=== PATIENT | female | born 1990 | race Caucasian/White ===

== ENCOUNTER 2016-09-13 11:20 | Emergency (ER) | payer SELFPAY ==
[~2016-09-13] VITALS: Ht 157.5 cm; Wt 73.4 kg
[~2016-09-13 11:20] MED LIST: ATARAX,VISTARIL50 MG PO; BENADRYL50 MG PO; IBUPROFEN800 MG PO; PREDNISONE20 MG PO; PRENATAL TABLE1 EAC3 PO
[2016-09-13 15:38] LABS: HEMATOCRIT 44.6 % (36.0-46.0); MCH 29.4 PG (29.0-34.0); MCHC 34.3 G/DL (30.0-36.0); MCV 85.6 FL (83-99); MEAN PLAT.VOLUME 8.8 uM^3 (9.5-12.4); PLATELET COUNT 258 K/uL (156-360); RBC DIS.WIDTH-CV 12.4 % (11.8-14.6); RED BLOOD COUNT 5.21 M/uL (3.80-5.20); WHITE BLOOD COUNT 9.2 K/uL (4.1-10.2)
[2016-09-13 15:45] LABS: D-DIMER ELISA 0.46 mg/L FEU (< 0.57)
[2016-09-13 15:47] LABS: CHLORIDE 107 mEq/L (99-109); POTASSIUM 3.9 mEq/L (3.7-5.4); SODIUM 142 mEq/L (136-147)
[2016-09-13 15:49] LABS: GLUCOSE 86 mg/dL (70-99)
[2016-09-13 15:50] LABS: ANION GAP 10 MEQ/L (2-14)
[2016-09-13 15:53] LABS: GFR ESTIMATE (CALCULATED) > 59 mL/min/
[2016-09-13 15:54] LABS: UREA NITROGEN (BUN) 13 mg/dL (9-23)
[2016-09-13 16:02] LABS: QUANTITATIVE HCG < 4.0 MIU/ML
[2016-09-13 16:20] VITALS: BP 129/88
== END 2016-09-13 16:21 | disposition home or self-care (01) ==
LOC: EME 11:20
PROVIDERS: Nurse Practitioner Family
DX: T50.995A Adverse effect of other drugs, medicaments and biological substances, initial encounter (principal); M79.661 Pain in right lower leg; M79.662 Pain in left lower leg; R06.00 Dyspnea, unspecified; R42 Dizziness and giddiness; H53.8 Other visual disturbances
CPT/HCPCS: 80048; 84702; 85027; 85379; 93970; 99281; 99283

== ENCOUNTER 2016-10-29 08:21 | Emergency (ER) | payer OTHER ==
[~2016-10-29] VITALS: Ht 157.5 cm; Wt 71.0 kg
[2016-10-29 11:10] LABS: CHLORIDE 103 mEq/L (99-109); POTASSIUM 4.1 mEq/L (3.7-5.4); SODIUM 138 mEq/L (136-147)
[2016-10-29 11:12] LABS: GLUCOSE 85 mg/dL (70-99)
[2016-10-29 11:13] LABS: ANION GAP 12 MEQ/L (2-14)
[2016-10-29 11:16] LABS: GFR ESTIMATE (CALCULATED) > 59 mL/min/
[2016-10-29 11:17] LABS: UREA NITROGEN (BUN) 12 mg/dL (9-23)
[2016-10-29] MEDS ORDERED: XARELTO15 MG PO (11:45)
[2016-10-29 12:05] VITALS: BP 140/102
== END 2016-10-29 12:05 | disposition home or self-care (01) ==
LOC: EME 08:21
PROVIDERS: Physician Assistant
DX: I82.432 Acute embolism and thrombosis of left popliteal vein (principal); Z79.3 Long term (current) use of hormonal contraceptives
CPT/HCPCS: 80048; 93971; 99281; 99283

== ENCOUNTER 2016-10-31 17:57 | Emergency (ER) | payer OTHER ==
[~2016-10-31] VITALS: Ht 157.5 cm; Wt 71.0 kg
[~2016-10-31 17:57] MED LIST changes: +XARELTO15 MG PO
[2016-10-31 18:25] VITALS: BP 134/87
== END 2016-10-31 21:36 | disposition home or self-care (01) ==
LOC: EME 17:57
DX: S06.0X0A Concussion without loss of consciousness, initial encounter (principal); W50.0XXA Accidental hit or strike by another person, initial encounter; Z86.718 Personal history of other venous thrombosis and embolism; Z79.01 Long term (current) use of anticoagulants
CPT/HCPCS: 70450; 99281; 99283

== ENCOUNTER 2017-05-01 11:50 | Emergency (ER) | payer OTHER ==
[~2017-05-01] VITALS: Ht 157.5 cm; Wt 71.7 kg
[2017-05-01 12:52] LABS: HEMATOCRIT 43.9 % (36.0-46.0); MCH 29.1 PG (29.0-34.0); MCHC 33.7 G/DL (30.0-36.0); MCV 86.4 FL (83-99); PLATELET COUNT 200 K/uL (156-360); RBC DIS.WIDTH-CV 12.3 % (11.8-14.6); RBC DIS.WIDTH-SD 38.7 % (39-53); RED BLOOD COUNT 5.08 M/uL (3.80-5.20); WHITE BLOOD COUNT 7.6 K/uL (4.1-10.2)
[2017-05-01 13:02] LABS: CHLORIDE 105 mEq/L (99-109); POTASSIUM 4.3 mEq/L (3.7-5.4); SODIUM 137 mEq/L (136-147)
[2017-05-01 13:04] LABS: GLUCOSE 94 mg/dL (70-99)
[2017-05-01 13:05] LABS: ANION GAP 8 MEQ/L (2-14)
[2017-05-01 13:06] LABS: TOTAL BILIRUBIN 0.7 mg/dL (0.0-1.0)
[2017-05-01 13:08] LABS: ALKALINE PHOSPHATASE 79 IU/L (3-129); GFR ESTIMATE (CALCULATED) > 59 mL/min/
[2017-05-01 13:09] LABS: UREA NITROGEN (BUN) 14 mg/dL (9-23)
[2017-05-01 13:11] LABS: LIPASE 23 U/L (1.0-51.0)
[2017-05-01 13:19] LABS: QUANTITATIVE HCG < 4.0 MIU/ML
[2017-05-01 14:37] LABS: INTER. NORMALIZED RATIO 1.7; PROTHROMBIN TIME 18.5 SEC (10.2-12.9)
[2017-05-01 14:39] LABS: PTT 33.2 SEC (25-37)
[2017-05-01 14:41] LABS: ADD MIUA? YES; BILIRUBIN NEGATIVE; BLOOD LARGE; COLOR YELLOW ((YELLOW)); GLUCOSE (STRIP) NEGATIVE; KETONES 5; LEUKOCYTES MODERATE; NITRITE NEGATIVE; PROTEIN (STRIP) NEGATIVE; SPECIFIC GRAVITY 1.012 (1.000-1.030); UROBILINOGEN 0.2 MG/DL (0.2-1.0)
[2017-05-01 14:49] LABS: BACTERIA RARE /HPF; EPITHELIAL CELLS 1+ /HPF; MUCUS TRACE /LPF; RED BLOOD CELLS 0-5 /HPF (0-5); UCUL ADDED? YES; WHITE BLOOD CELLS 15-20 /HPF (0-5)
[2017-05-01] MEDS ORDERED: BENTYL10 MG PO (16:36)
[2017-05-01 16:52] VITALS: BP 131/81
== END 2017-05-01 16:53 | disposition home or self-care (01) ==
LOC: EME 11:50
DX: N76.0 Acute vaginitis (principal); N83.209 Unspecified ovarian cyst, unspecified side; M79.605 Pain in left leg; Z86.718 Personal history of other venous thrombosis and embolism; Z79.01 Long term (current) use of anticoagulants
CPT/HCPCS: 76856; 80053; 81003; 83690; 84702; 85027; 85610; 85730; 87086; 93971; 99281; 99284

== ENCOUNTER 2017-06-28 12:38 | Emergency (ER) | payer OTHER ==
[~2017-06-28] VITALS: Ht 157.5 cm; Wt 71.2 kg
[~2017-06-28 12:38] MED LIST changes: +BENTYL10 MG PO
[2017-06-28 14:38] LABS: HEMATOCRIT 42.7 % (36.0-46.0); MCH 30.1 PG (29.0-34.0); MCHC 34.7 G/DL (30.0-36.0); MEAN PLAT.VOLUME 8.6 uM^3 (9.5-12.4); PLATELET COUNT 214 K/uL (156-360); RBC DIS.WIDTH-CV 11.9 % (11.8-14.6); RBC DIS.WIDTH-SD 38.1 % (39-53); RED BLOOD COUNT 4.91 M/uL (3.80-5.20); WHITE BLOOD COUNT 8.2 K/uL (4.1-10.2)
[2017-06-28 14:50] LABS: CHLORIDE 106 mEq/L (99-109); POTASSIUM 4.4 mEq/L (3.7-5.4); SODIUM 138 mEq/L (136-147)
[2017-06-28 14:52] LABS: GLUCOSE 85 mg/dL (70-99)
[2017-06-28 14:53] LABS: ANION GAP 8 MEQ/L (2-14)
[2017-06-28 14:55] LABS: GFR ESTIMATE (CALCULATED) > 59 mL/min/
[2017-06-28 14:56] LABS: UREA NITROGEN (BUN) 13 mg/dL (9-23)
[2017-06-28 15:08] LABS: QUANTITATIVE HCG < 4.0 MIU/ML
[2017-06-28] MEDS ORDERED: MOTRIN600 MG PO (15:43)
[2017-06-28 15:51] VITALS: BP 135/87
== END 2017-06-28 15:51 | disposition home or self-care (01) ==
LOC: EME 12:38
PROVIDERS: Nurse Practitioner Family
DX: M79.651 Pain in right thigh (principal); G62.9 Polyneuropathy, unspecified; Z86.718 Personal history of other venous thrombosis and embolism
CPT/HCPCS: 80048; 84702; 85027; 93971; 99281; 99283

== ENCOUNTER 2017-07-29 14:41 | Emergency (ER) | payer OTHER ==
[~2017-07-29] VITALS: Ht 157.5 cm; Wt 71.2 kg
[~2017-07-29 14:41] MED LIST changes: +MOTRIN600 MG PO
[2017-07-29 18:47] VITALS: BP 118/84
== END 2017-07-29 18:48 | disposition home or self-care (01) ==
LOC: EME 14:41
DX: S70.12XA Contusion of left thigh, initial encounter (principal); W20.8XXA Other cause of strike by thrown, projected or falling object, initial encounter; Z86.718 Personal history of other venous thrombosis and embolism; Z87.442 Personal history of urinary calculi; Z88.8 Allergy status to other drugs, medicaments and biological substances
CPT/HCPCS: 93971

== ENCOUNTER 2017-12-29 20:58 | Emergency (ER) | payer OTHER ==
[~2017-12-29] VITALS: Ht 157.5 cm; Wt 75.0 kg
[2017-12-29 22:20] LABS: HEMATOCRIT 44.5 % (36.0-46.0); HEMOGLOBIN 15.6 G/DL (11.9-15.5); MCH 30.8 PG (29.0-34.0); MCHC 35.1 G/DL (30.0-36.0); MCV 87.9 FL (83-99); PLATELET COUNT 121 K/uL (156-360); RBC DIS.WIDTH-CV 11.7 % (11.8-14.6); RBC DIS.WIDTH-SD 37.3 % (39-53); RED BLOOD COUNT 5.06 M/uL (3.80-5.20); WHITE BLOOD COUNT 13.5 K/uL (4.1-10.2)
[2017-12-29 22:36] LABS: ALBUMIN 4.3 g/dL (3.2-4.8); CHLORIDE 102 mEq/L (99-109); POTASSIUM 5.1 mEq/L (3.7-5.4); SODIUM 138 mEq/L (136-147)
[2017-12-29 22:38] LABS: GLUCOSE 96 mg/dL (70-99)
[2017-12-29 22:39] LABS: TOTAL PROTEIN 7.6 g/dL (6.4-8.3)
[2017-12-29 22:40] LABS: TOTAL BILIRUBIN 0.5 mg/dL (0.0-1.0)
[2017-12-29 22:42] LABS: ALKALINE PHOSPHATASE 101 IU/L (3-129); CREATININE 0.8 mg/dL (0.6-1.3); GFR ESTIMATE (CALCULATED) > 59 mL/min/
[2017-12-29 22:43] LABS: UREA NITROGEN (BUN) 13 mg/dL (9-23)
[2017-12-29 22:44] LABS: AST (GOT) 28 IU/L (2-34)
[2017-12-29 22:45] LABS: ALT (GPT) 14 IU/L (3-49)
[2017-12-30 01:29] VITALS: BP 147/68
== END 2017-12-30 01:30 | disposition home or self-care (01) ==
LOC: EME 20:58
PROVIDERS: Emergency Medicine
PROC: 09C1XZZ Extirpation of Matter from Left External Ear, External Approach (ICD-10-PCS; principal; 2017-12-29)
DX: R51 Headache (principal); H61.22 Impacted cerumen, left ear; Z86.718 Personal history of other venous thrombosis and embolism; Z87.442 Personal history of urinary calculi; Z88.8 Allergy status to other drugs, medicaments and biological substances
CPT/HCPCS: 70450; 80053; 81025; 85027; 99281; 99285; J2405; J3010